=== PATIENT | female | born 1985 | race Caucasian/White ===

== ENCOUNTER 2022-09-13 09:52 | Emergency (ER) | payer MEDICAID, SELFPAY ==
[2022-09-13 11:00] VITALS: BP 0/0; PULSE 0; RESP 0; TEMP -17.7; TEMP 0
== END 2022-09-13 11:00 | disposition left against medical advice (07) ==
PROVIDERS: Emergency Provider Nurse Practitioner Family
DX: Z53.21 Procedure and treatment not carried out due to patient leaving prior to being seen by health care provider (principal)

== ENCOUNTER 2022-10-05 15:57 | Emergency (ER) | payer MEDICAID, SELFPAY ==
--- NOTE | 2022-10-05 16:15 | XR_ITS ---
FINAL REPORT CLINICAL HISTORY: dog bite, pain. PT SHIELDED FINDINGS: 3 views of the right hand were obtained. There is no acute fracture or dislocation. The joint spaces are intact. There is no foreign body identified. IMPRESSION: No acute fracture or foreign body. Reviewed, Interpreted and Dictated by Camden Roca III, MD Transcribed by Ruslan More Authenticated and [facility]
[2022-10-05 16:17] VITALS: BP 110/60; PULSE 93; RESP 20; TEMP 36.9; O2SAT 98; BMI 30.9
--- NOTE | 2022-10-05 17:03 | HMH.EDGENADL ---
Discharge Plan Disposition Patient Disposition: Still a Patient Condition: Good Prescriptions Prescriptions: New metronidazole 500 mg tablet 500 mg PO BID 7 Days Qty: 14 0RF doxycycline hyclate 100 mg tablet 100 mg PO BID 7 Days Qty: 14 0RF Referrals Follow up/Referrals: Provider,Referral, [Primary Care Provider] - See instructions Activity Restrictions/Add. Instructions Additional Instructions/Restrictions: You were evaluated in the emergency department for a dog bite to your hand. 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 You will need subsequent rabies vaccinations on days 3, 7, and 14. Take Tylenol and ibuprofen at home as needed for pain. Keep your wounds clean and dry. Do not submerge in any water, such as dishwater, bath tubs, or other bodies of water. Follow-up with your primary care provider over the next 3 days for wound check. Return to the emergency department for any new or worsening symptoms. Clinical Impressions Clinical Impression: Dog bite Qualifiers: Encounter type: initial encounter Qualified Code(s): W54.0XXA - Bitten by dog, initial encounter Instructions Patient Instructions: Animal Bites, DI for Rabies Vaccine Discharge ED Provider: Tyra Nieto General Adult HPI General Chief complaint: Animal Bite Stated complaint: ao 10/05 dog bite right hand Time Seen by Provider: 10/05/22 16:08 Mode of Arrival: Ambulatory Source of Information: Patient Limitations: No Limitations Description of Symptoms (Recalled from ER Triage Doc. by RN): pt to ed c/o dog bite to the right hand. pt states she was taking out the trash and the dog ran up and bit her hand. pt states she is unaware of the dogs vaccination status. History of Present Illness HPI narrative: This patient is a 37-year-old female presenting to the emergency department for evaluation with concern for dog bite to the hand. She states this happened just prior to arrival. She does not know the dog. She states that she was outside taking the trash out when a stray pit bull without a collar ran up to her and bit her on the right hand. She complains of moderate right hand pain at this time that is constant and aching. She denies any other injuries. She is unsure when her last tetanus shot was. She has never been vaccinated against rabies. She was well prior to this. She does have an allergy to amoxicillin. Related Data Previous Rx's Medication Instructions Recorded doxycycline hyclate 100 mg tablet 100 mg PO BID 7 days #14 tabs 10/05/22 metronidazole 500 mg tablet 500 mg PO BID 7 days #14 tabs 10/05/22 Allergies Allergy/AdvReac Type Severity Reaction Status Date / Time amoxicillin Allergy Verified 10/05/22 16:29 Penicillins Allergy Verified 10/05/22 16:29 [facility] Disclaimer: The information contained in this section may have been updated after the patient was seen, as this information can be updated by other users. Social History Smoking Status: Never smoker alcohol intake: never current occupational status: employed Travel in the last 8 weeks: None ROS Obtained: Yes All systems reviewed & no additional complaints except as documented 14 point review of systems obtained and negative except as mentioned in HPI. Physical Exam General General appearance: alert and in no apparent distress Head Head exam: atraumatic and normocephalic Eye Eye exam: Present normal appearance, PERRL and EOMI ENT ENT exam: Present normal exam and normal oropharynx Neck Neck exam: Present normal inspection and full ROM Chest Chest inspection: Present normal inspection and symmetric chest wall rise Respiratory Respiratory exam: Present normal lung sounds bilaterally Cardiovascular Cardiovascular exam: Present regular rate and normal rhythm Abdominal Exam Abdominal exam: Present soft; Absent distention or tenderness
[2022-10-05 17:53] VITALS: BP 112/62; PULSE 88; RESP 20; TEMP 36.9; O2SAT 99
== END 2022-10-05 17:57 | disposition still patient (30) ==
PROVIDERS: Emergency Provider Emergency Medicine
DX: S61.451A Open bite of right hand, initial encounter (principal); Z88.0 Allergy status to penicillin; Z88.1 Allergy status to other antibiotic agents; Z88.3 Allergy status to other anti-infective agents; Z23 Encounter for immunization; W54.0XXA Bitten by dog, initial encounter
CPT/HCPCS: 73130; 90375; 90471; 90675; 90715; 96372; 99284

== ENCOUNTER 2023-04-09 04:43 | Emergency (ER) | payer MEDICAID, SELFPAY ==
[2023-04-09 04:44] VITALS: BP 127/85; PULSE 93; RESP 17; TEMP 36.7; O2SAT 99; BMI 30.9
--- NOTE | 2023-04-09 04:56 | PC.NURSE ---
in room talking with patient at this time.
[2023-04-09 04:57] VITALS: BMI 30.9
[2023-04-09 05:01] VITALS: BP 127/85; PULSE 85; O2SAT 96
[2023-04-09 05:03] LABS: Microscopic, Urine URINE MICROSCOPIC (MICROSCOPIC)
[2023-04-09 05:04] LABS: Appearance,Urine CLOUDY (Clear); Bilirubin,Urine Negative (Negative); Blood, Urine 2+ (Negative); Color,Urine YELLOW (Yellow); Glucose,Urine (UA) Negative (Negative); Ketones,Urine Negative (Negative); Leukocyte Esterase,Urine 2+ (Negative); Nitrate,Urine POSITIVE (Negative); Protein,Urine 2+ (Negative); Specific Gravity, Urine >= 1.030 (1.005-1.030); Urobilinogen,Urine 0.2 EU/dl (0.2)
[2023-04-09 05:07] LABS: Urine Pregnancy, HCG Qual. Negative (Negative)
--- NOTE | 2023-04-09 05:09 | HMH.EDUROGF ---
Discharge Plan Disposition Patient Disposition: Home, Self-Care Prescriptions Prescriptions: New levofloxacin 500 mg tablet 500 mg PO DAILY Qty: 7 0RF phenazopyridine [Pyridium] 200 mg tablet 200 mg PO TID Qty: 6 0RF No Action No Known Home Medications Referrals Follow up/Referrals: Provider,Referral, MD [Primary Care Provider] - See instructions Clinical Impressions Clinical Impression: Urinary tract infection Instructions Patient Instructions: DI for Urinary Tract Infection (UTI) Discharge ED Provider: Eze (ED)Marty Female Urogenital HPI General Chief complaint: Urogenital-Female Stated complaint: Possible UTI Time Seen by Provider: 04/09/23 04:45 Mode of Arrival: Family Vehicle Source of Information: Patient and Medical Record Limitations: No Limitations Description of Symptoms (Recalled from ER Triage Doc. by RN): Pt c/o dysuria and suprapubic pain that began yesterday morning (04/08) and has worsened this morning. She She denies any gross hematuria or trouble voiding. Pt states this feels like a previous UTI she had several years ago. Denies any medication OTC or prescribed that she has taken for relief. Pt does report drinking cranberry juice and increasing water intake. Denies any vaginal discharge or bleeding. History of Present Illness HPI Narrative: pt with dysuria and pain assoc with possible uti x 1 day - no fever or back pain and no vag d/c MD Complaint: dysuria and UTI Onset (ago): day(s) Severity: moderate Urinary Symptoms: dysuria and frequency Associated symptoms: denies other symptoms Related Data Home Medications Medication Instructions Recorded Confirmed No Known Home Medications 04/09/23 04/09/23 Previous Rx's Medication Instructions Recorded levofloxacin 500 mg tablet 500 mg PO DAILY #7 tabs 04/09/23 phenazopyridine 200 mg tablet 200 mg PO TID 6 doses #6 tabs 04/09/23 (Pyridium) Allergies Allergy/AdvReac Type Severity Reaction Status Date / Time amoxicillin Allergy Verified 10/05/22 16:29 Penicillins Allergy Verified 10/05/22 16:29 [facility] Disclaimer: The information contained in this section may have been updated after the patient was seen, as this information can be updated by other users. Social History (Updated 10/05/22 @ 19:08 by Tyra Nieto DO) Smoking Status: Current every day smoker alcohol intake: never current occupational status: employed Travel in the last 8 weeks: None ROS Obtained: Yes All systems reviewed & no additional complaints except as documented Physical Exam General General appearance: alert Head Head exam: normocephalic Eye Eye exam: Present PERRL and EOMI ENT ENT exam: Present mucous membranes moist Neck Neck exam: Present trachea midline Respiratory Respiratory exam: Absent respiratory distress Cardiovascular Cardiovascular exam: Present regular rate Abdominal Exam Abdominal exam: Present soft Abdominal tenderness: Present suprapubic and mild Extremities Exam Extremities exam: Present full ROM Neurological Exam Neurological exam: Present alert and CN II-XII intact; Absent motor sensory deficit Psychiatric Psychiatric exam: Present normal affect Skin Skin exam: Absent rash Medical Decision Making Medical Records Medical records reviewed: Yes I reviewed the patient's medical records. Dawit Inquiry Pt receiving controlled substance: No Vital Signs: 04/09/23 04:44 Temperature 98.1 F Temperature Source Oral Pulse Rate [Right] 93 H Respiratory Rate 17 Blood Pressure [Right Arm] 127/85 Blood Pressure Mean [Right Arm] 99 Blood Pressure Source [Right Arm] Automatic Cuff 02 Sat by Pulse Oximetry 99 Oxygen Delivery Method Room Air Lab Data Lab results reviewed: Yes I reviewed the patient's lab results. Lab Results 04/09/23 04:50: Urine Color Yellow, Urine Appearance Cloudy, Urine pH 6.0, Ur Specific [place] >= 1.030, Urine Protein 2+, Urine Glucose (UA)
--- NOTE | 2023-04-09 05:11 | PC.NURSE ---
Rounded on patient, no needs voiced at this time.
[2023-04-09 05:18] VITALS: BP 125/84; PULSE 80; RESP 18; TEMP 36.7; O2SAT 97
[2023-04-09 05:20] LABS: WBC,Urine TNTC #/hpf (0-3)
[2023-04-09 05:23] LABS: Bacteria,Urine 3+ /lpf; Squamous Epithelial Cell,Urine Occasional #/hpf (0-5)
== END 2023-04-09 05:33 | disposition home or self-care (01) ==
PROVIDERS: Emergency Provider Emergency Medicine
DX: N39.0 Urinary tract infection, site not specified (principal); B96.89 Other specified bacterial agents as the cause of diseases classified elsewhere; F17.210 Nicotine dependence, cigarettes, uncomplicated
CPT/HCPCS: 81001; 81025; 87086; 87088; 87186; 99283; 99284